=== PATIENT | male | born 1985 | race African-American/Black ===

== ENCOUNTER 2018-12-09 15:04 | Inpatient (IN) | payer MEDICAID ==
[~2018-12-09] VITALS: Ht 175.3 cm; Wt 152.9 kg
[~2018-12-09 15:04] MED LIST: ATOR20TA PO; INSU100C11 SQ; INSU100C3 SQ; METF-414 PO
[2018-12-09] MEDS ORDERED: SODIUM CHLORIDE 0.9% 1,000 ML IV ONE (16:29)
[2018-12-09] MEDS ORDERED: SODIUM CHLORIDE 0.9% 1000ML BAG (SEPSIS BOLUS) IV ONE (16:30)
[2018-12-09] MEDS ORDERED: VANCOMYCIN 1 G PREMIX 200 ML IV ONE (16:30)
[2018-12-09] MEDS ORDERED: CEFTRIAXONE 1 G PREMIX 50 ML IV ONE (16:30)
[2018-12-09] MEDS ORDERED: MORPHINE SULFATE 10 MG/ML CPJ IV ONE (16:45)
[2018-12-09] MEDS ORDERED: ONDANSETRON HCL 4MG/2ML INJ IV ONE (16:45)
[2018-12-09 17:36] LABS: CHLORIDE 100 mEq/L (98-107)
[2018-12-09 17:37] LABS: BASOPHILS % 0.5 % (0.0-2.0); CLARITY URINE CLEAR (CLEAR); COLOR URINE YELLOW (YELLOW); EOSINOPHILS % 0.6 % (0.0-5.0); HEMATOCRIT. 38.7 % (42.0-52.0); HEMOGLOBIN. 13.2 g/dL (14.0-18.0); KETONES URINE TRACE (NEGATIVE); LEUKOCYTE ESTERASE URINE NEGATIVE (NEGATIVE); LYMPHOCYTES % 17.5 % (20.0-50.0); MEAN CORPUSCULAR HEMOGLOBIN 28.7 pg (28.0-32.0); MEAN CORPUSCULAR VOLUME 84.4 fL (80.0-94.0); MEAN PLATELET VOLUME 8.9 fl (7.4-10.4); MONOCYTES % 8.6 % (2.0-8.0); NEUTROPHILS % 72.8 % (40.0-76.0); NITRITE URINE NEGATIVE (NEGATIVE); OCCULT BLOOD URINE TRACE (NEGATIVE); PH URINE 5.5 (4.5-8.0); PLATELET 220 x1000/uL (130-400); PROTEIN URINE TRACE (NEGATIVE); RED BLOOD CELL COUNT 4.59 mill/uL (4.7-6.1); RED CELL DISTRIBUTION WIDTH 14.5 % (11.6-14.6); SPECIFIC GRAVITY URINE 1.031 (1.005-1.030); UROBILINOGEN URINE 0.2 E.U./dL (0.2-1.0)
[2018-12-09] MEDS ORDERED: LIDOCAINE 1%/EPI 1:100,000 10 ML VIAL IJ ONE (20:45)
[2018-12-09] MEDS ORDERED: LIDOCAINE HCL/EPINEPHRINE 1%-EPI 1:100,000 20 ML VIAL INFIL NR (21:00)
[2018-12-09] MEDS ORDERED: ACETAMINOPHEN 325MG TABLET ONE (22:00)
[2018-12-10 09:30] VITALS: BP 198/104
[2018-12-10] MEDS ORDERED: DIPHENHYDRAMINE 50MG/ML VIAL IV PRN (11:00)
[2018-12-10] MEDS ORDERED: MAGNESIUM/ALUMINUM HYDROXIDE/SIMETHICONE 30ML UDC PO PRN (11:00)
[2018-12-10] MEDS ORDERED: NA PHOS,M-B/NA PHOS,DI-BA ENEMA 118ML PR PRN (11:00)
[2018-12-10] MEDS ORDERED: GUAIFENESIN 200MG/10ML SUGAR FREE UDC PO PRN (11:00)
[2018-12-10] MEDS ORDERED: DEXTROSE 50% WATER 50ML SYRINGE IV PRN (11:00)
[2018-12-10] MEDS ORDERED: METOPROLOL TARTRATE 50MG TABLET PO NR (11:00)
[2018-12-10] MEDS ORDERED: DOCUSATE SODIUM 100MG CAPSULE PO PRN (11:00)
[2018-12-10] MEDS ORDERED: IPRATROPIUM/ALBUTEROL 0.5-3(2.5)MG/3ML NEB INH PRN (11:00)
[2018-12-10] MEDS ORDERED: ACETAMINOPHEN 650MG SUPP PR PRN (11:00)
[2018-12-10] MEDS ORDERED: LORAZEPAM 0.5MG TABLET PO PRN (11:00)
[2018-12-10] MEDS ORDERED: ONDANSETRON HCL 4MG/2ML INJ IV PRN (11:00)
[2018-12-10] MEDS ORDERED: CLONIDINE 0.1MG TABLET PO SCH (11:15)
[2018-12-10] MEDS: CLONIDINE 0.1MG TABLET PO PRN ×3 (11:21→21:46)
[2018-12-10] MEDS: HYDROCODONE/ACETAMINOPHEN 5/325MG TABLET PO PRN ×2 (11:44→20:02)
[2018-12-10] MEDS: ENOXAPARIN 40MG/0.4ML SYR SUBCUT SCH (12:00)
[2018-12-10 12:05] LABS: CHLORIDE 103 mEq/L (98-107)
[2018-12-10 12:07] LABS: BASOPHILS % 0.6 % (0.0-2.0); EOSINOPHILS % 0.5 % (0.0-5.0); HEMATOCRIT. 38.1 % (42.0-52.0); HEMOGLOBIN. 12.8 g/dL (14.0-18.0); LYMPHOCYTES % 13.3 % (20.0-50.0); MEAN CORPUSCULAR HEMOGLOBIN 28.4 pg (28.0-32.0); MEAN CORPUSCULAR VOLUME 84.1 fL (80.0-94.0); MEAN PLATELET VOLUME 8.4 fl (7.4-10.4); MONOCYTES % 6.3 % (2.0-8.0); NEUTROPHILS % 79.3 % (40.0-76.0); PLATELET 204 x1000/uL (130-400); RED BLOOD CELL COUNT 4.53 mill/uL (4.7-6.1); RED CELL DISTRIBUTION WIDTH 14.9 % (11.6-14.6)
[2018-12-10] MEDS: BLOOD SUGAR DIAGNOSTIC STRIP TEST SCH ×3 (12:20→21:00)
[2018-12-10] MEDS ORDERED: VANCOMYCIN 1 G PREMIX 200 ML IV SCH (14:00)
[2018-12-10 14:27] LABS: *AMPHETAMINES SCREEN URINE NEGATIVE (NEGATIVE)
[2018-12-10 14:28] LABS: *BARBITURATES SCREEN URINE NEGATIVE (NEGATIVE); *BENZODIAZEPINES SCREEN URINE NEGATIVE (NEGATIVE); CANNABINOID URINE SCREEN NEGATIVE (NEGATIVE); METHADONE URINE SCREEN NEGATIVE (NEGATIVE); OPIATES URINE SCREEN NEGATIVE (NEGATIVE); PHENCYCLIDINE URINE SCREEN NEGATIVE (NEGATIVE)
[2018-12-10] MEDS: INSULIN LISPRO 100 UNITS/ML SUBCUT SCH ×3 (14:29→21:45)
[2018-12-10 14:44] LABS: *COCAINE SCREEN URINE NEGATIVE (NEGATIVE)
[2018-12-10] MEDS ORDERED: SODIUM BICARBONATE 4% (2.4MEQ) 5ML VIAL IV ONE (14:52)
[2018-12-10] MEDS ORDERED: LIDOCAINE HCL 1% 20ML VIAL (Pyxis) INJ ONE (14:52)
[2018-12-10] MEDS ORDERED: POTASSIUM CHLORIDE INJ 40 MEQ in DEXT 5% WATER 250 ML IV SCH (15:00)
[2018-12-10] MEDS: PIPERACILLIN/TAZ 3.375G PREMIX 50 ML IV SCH ×2 (16:16→21:41)
[2018-12-10 16:20] VITALS: BP_SYST 154; BP_SYST 191; BP_DIAS 109
[2018-12-10] MEDS ORDERED: HYDRALAZINE 20MG/ML VIAL IV SCH (18:00)
[2018-12-10 20:00] VITALS: BP 165/111
[2018-12-10] MEDS: METOPROLOL TARTRATE 50MG TABLET PO SCH (20:00)
[2018-12-10] MEDS: HYDRALAZINE 20MG/ML VIAL IV PRN (20:01)
[2018-12-10] MEDS: VANCOMYCIN 1250MG in DEXTROSE 5% WATER 250ML IV SCH (22:00)
[2018-12-11] VITALS: BP 121/51
[2018-12-11 04:00] VITALS: BP 176/96
[2018-12-11] MEDS: PIPERACILLIN/TAZ 3.375G PREMIX 50 ML IV SCH ×3 (04:00→18:42)
[2018-12-11] MEDS: CLONIDINE 0.1MG TABLET PO PRN (04:30)
[2018-12-11] MEDS: HYDROCODONE/ACETAMINOPHEN 5/325MG TABLET PO PRN (04:31)
[2018-12-11] MEDS: HYDRALAZINE 20MG/ML VIAL IV PRN (05:37)
[2018-12-11 06:44] LABS: BASOPHILS % 0.4 % (0.0-2.0); EOSINOPHILS % 0.8 % (0.0-5.0); HEMATOCRIT. 35.6 % (42.0-52.0); MEAN CORPUSCULAR HEMOGLOBIN 28.5 pg (28.0-32.0); MEAN CORPUSCULAR VOLUME 84.7 fL (80.0-94.0); MEAN PLATELET VOLUME 8.3 fl (7.4-10.4); MONOCYTES % 9.9 % (2.0-8.0); NEUTROPHILS % 73.9 % (40.0-76.0); PLATELET 198 x1000/uL (130-400); RED BLOOD CELL COUNT 4.21 mill/uL (4.7-6.1); RED CELL DISTRIBUTION WIDTH 14.7 % (11.6-14.6)
[2018-12-11] MEDS: BLOOD SUGAR DIAGNOSTIC STRIP TEST SCH ×4 (07:10→21:42)
[2018-12-11] MEDS: INSULIN LISPRO 100 UNITS/ML SUBCUT SCH ×4 (07:40→21:00)
[2018-12-11] MEDS: METOPROLOL TARTRATE 50MG TABLET PO SCH ×2 (08:15→21:31)
[2018-12-11] MEDS ORDERED: LIDOCAINE HCL 1% 20ML VIAL (Pyxis) INJ ONE (08:29)
[2018-12-11] MEDS ORDERED: SODIUM BICARBONATE 4% (2.4MEQ) 5ML VIAL IV ONE (08:29)
[2018-12-11 09:05] LABS: CHLORIDE 103 mEq/L (98-107)
[2018-12-11 09:17] LABS: LDL CHOLESTEROL 105 mg/dL (5-100)
[2018-12-11 09:19] LABS: HDL CHOLESTEROL 38 mg/dL (40-59); T4 FREE 0.72 ng/dL (0.76-1.46)
[2018-12-11 12:00] VITALS: BP 160/107
[2018-12-11] MEDS: ENOXAPARIN 40MG/0.4ML SYR SUBCUT SCH ×2 (13:16)
[2018-12-11] MEDS: VANCOMYCIN 1250MG in DEXTROSE 5% WATER 250ML IV SCH ×2 (13:31→21:33)
[2018-12-11] MEDS: HYDRALAZINE HCL 50MG TABLET PO SCH ×2 (13:33→21:30)
[2018-12-11] MEDS: SODIUM CHLORIDE 0.9% 1,000 ML IV SCH (13:40)
[2018-12-11 16:00] VITALS: BP 143/100
[2018-12-11] MEDS ORDERED: ARIP20TA2 GT (17:47)
[2018-12-11] MEDS ORDERED: LORA10TA7 PO (17:47)
[2018-12-11] MEDS ORDERED: ATOR20TA65 PO (17:47)
[2018-12-11] MEDS ORDERED: AMLO5TAB88 PO (17:47)
[2018-12-11] MEDS ORDERED: LIRA0.6P SQ (17:47)
[2018-12-11] MEDS ORDERED: LOSA1TAB40 PO (17:47)
[2018-12-11] MEDS ORDERED: LURA20TA PO (17:47)
[2018-12-11] MEDS ORDERED: METF-414 PO (17:47)
[2018-12-11] MEDS ORDERED: VENL150C52 PO (17:47)
[2018-12-11 20:00] VITALS: BP 141/95
[2018-12-11] MEDS: ACETAMINOPHEN 325MG TABLET PO PRN (21:31)
[2018-12-12] VITALS (7 sets, daily range): BP systolic 141–188; BP diastolic 84–109
[2018-12-12] MEDS: PIPERACILLIN/TAZ 3.375G PREMIX 50 ML IV SCH ×4 (00:09→17:52)
[2018-12-12] MEDS: ENOXAPARIN 40MG/0.4ML SYR SUBCUT SCH ×2 (00:09→13:14)
[2018-12-12] MEDS: HYDRALAZINE HCL 50MG TABLET PO SCH ×3 (05:04→22:26)
[2018-12-12 06:16] LABS: HEMATOCRIT. 38.5 % (42.0-52.0); HEMOGLOBIN. 13.1 g/dL (14.0-18.0); MEAN CORPUSCULAR HEMOGLOBIN 29.2 pg (28.0-32.0); MEAN CORPUSCULAR VOLUME 85.8 fL (80.0-94.0); MEAN PLATELET VOLUME 8.4 fl (7.4-10.4); PLATELET 237 x1000/uL (130-400); RED BLOOD CELL COUNT 4.49 mill/uL (4.7-6.1)
[2018-12-12 06:37] LABS: CHLORIDE 106 mEq/L (98-107)
[2018-12-12 06:45] LABS: VANCOMYCIN TROUGH 19.9 ug/mL (5.0-10.0)
[2018-12-12] MEDS: BLOOD SUGAR DIAGNOSTIC STRIP TEST SCH ×4 (06:45→21:16)
[2018-12-12] MEDS: INSULIN LISPRO 100 UNITS/ML SUBCUT SCH ×4 (06:45→21:00)
[2018-12-12] MEDS: VANCOMYCIN 1250MG in DEXTROSE 5% WATER 250ML IV SCH (06:46)
[2018-12-12] MEDS: METOPROLOL TARTRATE 50MG TABLET PO SCH ×2 (09:12→20:53)
[2018-12-12] MEDS: SODIUM CHLORIDE 0.9% 1,000 ML IV SCH ×2 (13:12→16:20)
[2018-12-12] MEDS: AMLODIPINE 5MG TABLET PO SCH (13:13)
[2018-12-12 13:54] LABS: PLATELET ESTIMATE NORMAL
[2018-12-12 14:09] LABS: BG BASE EXCESS 0.1 mmol/L (-2.0-2.0); BG CARBOXYHEMOGLOBIN 0.3 % (0.5-1.5); BG DEOXYHEMOGLOBIN 6.5 % (0.0-5.0); BG FRACTION INSPIRED OXYGEN 21; BG HCO3 ACT 23.7 mmol/L (22.0-26.0); BG METHEMOGLOBIN 0.1 % (0.0-1.5); BG OXYGEN SATURATION 93.5 % (92.0-98.5); BG OXYHEMOGLOBIN 93.1 % (94.0-97.0); BG PCO2 35.1 mmHg (35.0-45.0); BG PH 7.447 (7.350-7.450); BG PO2 65.9 mmHg (75.0-100.0); BG SAMPLE SITE RIGHT RADIAL; BG TOTAL HEMOGLOBIN 13.1 g/dL (12.0-18.0); BG VENT MODE ROOM AIR
[2018-12-12] MEDS: VANCOMYCIN 1 G PREMIX 200 ML IV SCH (15:58)
[2018-12-12] MEDS: VENLAFAXINE HCL 50MG TABLET PO SCH (17:51)
[2018-12-12] MEDS: METFORMIN HCL 500MG TABLET PO SCH (17:51)
[2018-12-12] MEDS: ATORVASTATIN CALCIUM 20MG TABLET PO SCH (20:53)
[2018-12-12] MEDS ORDERED: MEDICATION NOT ON FORMULARY EA (Lurasidone Hcl (Latuda) 20 MG) PO SCH (21:00)
[2018-12-13] VITALS: BP 140/98
[2018-12-13] MEDS: PIPERACILLIN/TAZ 3.375G PREMIX 50 ML IV SCH ×5 (00:16→23:53)
[2018-12-13] MEDS: VANCOMYCIN 1 G PREMIX 200 ML IV SCH ×4 (00:16→22:13)
[2018-12-13] MEDS: ENOXAPARIN 40MG/0.4ML SYR SUBCUT SCH ×3 (00:19→23:53)
[2018-12-13 04:00] VITALS: BP 152/110
[2018-12-13] MEDS: HYDRALAZINE HCL 50MG TABLET PO SCH ×3 (05:51→22:12)
[2018-12-13] MEDS: BLOOD SUGAR DIAGNOSTIC STRIP TEST SCH ×4 (05:52→21:00)
[2018-12-13] MEDS: INSULIN LISPRO 100 UNITS/ML SUBCUT SCH ×4 (06:08→21:00)
[2018-12-13 06:27] LABS: BASOPHILS % 0.4 % (0.0-2.0); HEMATOCRIT. 36.8 % (42.0-52.0); HEMOGLOBIN. 12.1 g/dL (14.0-18.0); LYMPHOCYTES % 19.7 % (20.0-50.0); MEAN CORPUSCULAR HEMOGLOBIN 28.6 pg (28.0-32.0); MEAN CORPUSCULAR VOLUME 86.8 fL (80.0-94.0); MONOCYTES % 8.6 % (2.0-8.0); NEUTROPHILS % 68.3 % (40.0-76.0); PLATELET 242 x1000/uL (130-400); RED BLOOD CELL COUNT 4.24 mill/uL (4.7-6.1); RED CELL DISTRIBUTION WIDTH 14.9 % (11.6-14.6)
[2018-12-13 06:30] LABS: CHLORIDE 108 mEq/L (98-107)
[2018-12-13] MEDS ORDERED: LORATADINE 10MG TABLET PO SCH (09:00)
[2018-12-13] MEDS ORDERED: ARIPIPRAZOLE 10MG TABLET PO SCH (09:00)
[2018-12-13] MEDS: METOPROLOL TARTRATE 50MG TABLET PO SCH ×2 (10:07→20:40)
[2018-12-13] MEDS: VENLAFAXINE HCL 50MG TABLET PO SCH ×3 (10:07→18:23)
[2018-12-13] MEDS: METFORMIN HCL 500MG TABLET PO SCH ×2 (10:08→18:23)
[2018-12-13] MEDS: AMLODIPINE 5MG TABLET PO SCH (10:08)
[2018-12-13 11:52] VITALS: BP 140/83
[2018-12-13] MEDS: ACETAMINOPHEN 325MG TABLET PO PRN (14:18)
[2018-12-13 15:54] VITALS: BP 149/98
[2018-12-13 20:00] VITALS: BP 177/102
[2018-12-13] MEDS: CLONIDINE 0.1MG TABLET PO PRN (20:40)
[2018-12-13] MEDS: ATORVASTATIN CALCIUM 20MG TABLET PO SCH (20:40)
[2018-12-13 22:00] VITALS: BP 162/105
[2018-12-13] MEDS: SODIUM CHLORIDE 0.9% 1,000 ML IV SCH ×2 (22:19→22:20)
[2018-12-14] VITALS: BP 152/98
[2018-12-14] MEDS ORDERED: DEXT 5%/0.45% NACL 1000ML 1,000 ML IV SCH (01:00)
[2018-12-14 02:35] VITALS: BP 144/69
[2018-12-14 04:00] VITALS: BP 181/101
[2018-12-14] MEDS: CLONIDINE 0.1MG TABLET PO PRN (04:57)
[2018-12-14] MEDS: HYDRALAZINE 20MG/ML VIAL IV PRN (05:02)
[2018-12-14] MEDS: PIPERACILLIN/TAZ 3.375G PREMIX 50 ML IV SCH (05:57)
[2018-12-14] MEDS: HYDRALAZINE HCL 50MG TABLET PO SCH (05:57)
[2018-12-14] MEDS: VANCOMYCIN 1 G PREMIX 200 ML IV SCH (05:59)
[2018-12-14 08:00] VITALS: BP 144/69
== END 2018-12-14 08:10 | disposition short-term general hospital (02) | DRG 710 ==
LOC: ER 15:04 → 6EST 12-10 02:12 → EDBEDREQTM 12-10 02:17 → EDBEDREQDT 12-10 02:17 → EDBEDREQSVC 12-10 02:17 → EDBEDREQ 12-10 02:17 → ENRESERV 12-10 07:30 → 8WST 12-10 16:08
PROVIDERS: ADMIT Internal Medicine; ATTEND Internal Medicine
PROC: 0J940ZZ Drainage of Right Neck Subcutaneous Tissue and Fascia, Open Approach (ICD-10-PCS; principal; 2018-12-10)
PROC: 0W923ZX Drainage of Face, Percutaneous Approach, Diagnostic (ICD-10-PCS; 2018-12-10)
PROC: 02HV33Z Insertion of Infusion Device into Superior Vena Cava, Percutaneous Approach (ICD-10-PCS; 2018-12-13)
PROC: B5181ZA Fluoroscopy of Superior Vena Cava using Low Osmolar Contrast, Guidance (ICD-10-PCS; 2018-12-13)
PROC: B548ZZA Ultrasonography of Superior Vena Cava, Guidance (ICD-10-PCS; 2018-12-13)
DX: A41.9 Sepsis, unspecified organism (principal); E66.01 Morbid (severe) obesity due to excess calories; L02.11 Cutaneous abscess of neck; E87.6 Hypokalemia; E11.9 Type 2 diabetes mellitus without complications; D64.9 Anemia, unspecified; L03.221 Cellulitis of neck; N18.9 Chronic kidney disease, unspecified; I10 Essential (primary) hypertension; F84.0 Autistic disorder; F32.9 Major depressive disorder, single episode, unspecified; Z68.42 Body mass index [BMI] 45.0-49.9, adult
CPT/HCPCS: 36415; 36569; 36573; 36600; 70490; 71045; 76942; 80048; 80061; 80202; 80305; 82375; 82805; 82962; 83036; 83605; 84145; 84439; 84443; 84484; 87070; 93005; 93970; 96365; 96366; 97162; 99285; C1725; C1729; J0360; J0696; J1650; J1815; J2543; J3370; J3480; J3490; J7030; J7060